=== PATIENT | female | born 1995 | race Caucasian/White ===

== ENCOUNTER 2021-06-22 04:27 | Emergency (ER) | payer OTHER, SELFPAY ==
[~2021-06-22] VITALS: Ht 152.4 cm; Wt 59.8 kg
[2021-06-22] MEDS ORDERED: CYMB1CAP4 PO (04:33)
[2021-06-22] MEDS ORDERED: HYDR50TA70 PO (04:33)
[2021-06-22] MEDS ORDERED: LIDOCAINE 5% (LIDODERM) PATCH TD ONE (07:10)
[2021-06-22] MEDS ORDERED: ACETAMINOPHEN 325 MG TAB PO ONE (07:10)
--- NOTE | 2021-06-22 08:28 | REP ---
INDICATION: lifting heavy packages sev shoulder/scapular pain COMPARISON: None. TECHNIQUE: AP, lateral, flexion/extension, bilateral oblique and open mouth views of the cervical spine. FINDINGS: Alignment and lordosis is maintained. There is no evidence for acute fracture / compression injury or subluxation. No significant degenerative changes are appreciated. Oblique views demonstrate patent neural foramen. Open mouth view demonstrates normal C1-C2 articulation and odontoid process. IMPRESSION: Normal cervical spine series. <Electronically signed by Coleman Calderón > 06/22/21 [id number]
--- NOTE | 2021-06-22 08:28 | REP ---
INDICATION: lifting heavy packages sev shoulder/scapular pain COMPARISON: None. TECHNIQUE: Internal rotation, external rotation, and Y view. FINDINGS: No acute fracture or dislocation. The acromioclavicular and glenohumeral joints are intact. No periarticular calcifications or degenerative changes are appreciated. Sub acromial space is normal. Surrounding soft tissues are unremarkable. IMPRESSION: Normal left shoulder radiographs. <Electronically signed by Coleman Calderón > 06/22/21 [id number]
[2021-06-22] MEDS ORDERED: METH-1164 PO (08:34)
[2021-06-22] MEDS ORDERED: NAPR-837 PO (08:34)
[2021-06-22 08:48] VITALS: BP 122/78
[2021-06-22] MEDS ORDERED: **NOTE PATIENT COMMENT** MISC XX SCH (21:00)
== END 2021-06-22 08:49 | disposition home or self-care (01) ==
LOC: M ED 04:27
DX: M54.2 Cervicalgia (principal); M25.512 Pain in left shoulder; F17.290 Nicotine dependence, other tobacco product, uncomplicated; F12.10 Cannabis abuse, uncomplicated

== ENCOUNTER 2024-03-25 19:15 | Emergency (ER) | payer SELFPAY ==
[~2024-03-25] VITALS: Ht 152.4 cm; Wt 59.6 kg
[~2024-03-25 19:15] MED LIST: CYMB1CAP4 PO; HYDR50TA70 PO; METH-1164 PO; NAPR-837 PO
[2024-03-25 19:16] VITALS: BP 140/68; TEMP 97.7; O2SAT 99
== END 2024-03-25 20:02 | disposition left against medical advice (07) ==
LOC: M ED 19:15
DX: Z53.21 Procedure and treatment not carried out due to patient leaving prior to being seen by health care provider (principal)